=== PATIENT | male | born 1960 | race Caucasian/White ===

== ENCOUNTER 2017-06-11 22:46 | Emergency (ER) | payer OTHER ==
[~2017-06-11] VITALS: Ht 177.8 cm; Wt 88.5 kg
[2017-06-11] MEDS ORDERED: DIOVAN HCT 1601 EAC1 ORAL (23:03)
[2017-06-11 23:40] VITALS: BP 180/107
[2017-06-12] MEDS ORDERED: ZITHROMAX250 MG ORAL (00:07)
[2017-06-12 00:15] VITALS: BP 180/107
[2017-06-12] MEDS ORDERED: Bacitracin Oint UD TOPIC ONE (00:15)
--- NOTE | 2017-06-12 03:53 | Emergency Room Report ---
History of Present Illness General Chief Complaint: Laceration Source: Patient Present Illness HPI Patient is a 57-year-old male who presented after increased left thumb pain. Patient had injury approximately 2 hours prior to arrival. Patient stated he had up-to-date tetanus vaccine. He denies any pulsatile bleeding. He states that he had no numbness distally to the injury. The patient been holding direct pressure. He is right-hand dominant. 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 Allergies: Coded Allergies: PENICILLINS (Verified Allergy, Unknown, 06/11/17) Patient History Past Medical History: see triage record Reviewed Nursing Documentation: PMH: Agreed, PSxH: Agreed Nursing Documentation-PMH Past Medical History: No History, Except For Hx Hypertension: Yes Review of Systems All Other Systems: negative except mentioned in HPI Physical Exam Vital Signs Date Time Temp Pulse Resp B/P (MAP) Pulse Ox O2 Delivery O2 Flow Rate FiO2 06/11/17 22:59 98.2 95 14 180/107 96 Room Air 98.2 General Appearance: well appearing, no apparent distress, alert, GCS 15 Head: normocephalic, atraumatic ENT: hearing grossly normal, normal voice Neck: full range of motion, supple Respiratory: no respiratory distress, speaking full sentences Musculoskeletal: no calf tenderness Neurologic: normal inspection, alert, oriented x3, normal gait Psychiatric: mood/affect normal Skin: no rash, laceration - distal phalanx left thumb pad Procedures Laceration/Wound Repair Laceration/Wound Repair : Wound Location: upper extremity Wound's Depth, Shape: superficial Wound Length (cm): 2 Wound Explored: clean Irrigated w/ Saline (ccs): 30 Betadine Prep?: Yes Anesthesia: 1% Lidocaine Volume Anesthetic (ccs): 2 Wound Debrided: minimal Wound Repaired With: sutures Suture Size/Type: 5:0 Number of Sutures: 5 Sterile Dressing Applied?: Yes Patient Tolerated: Well Complications: None Medical Decision Making Diagnostic Impression: Primary Impression: Laceration ER Course Patient presented for laceration. Differential diagnoses included foreign body , nerve injury, arterial injury among others. Patient has a benign exam and does not appear to require any further imaging or laboratory testing at this time. The patient was irrigated and closed after local anesthetic. The patient tolerated well. There is no noted foreign body. The patient is advised suture removal in 10-14 days and wound check in approximately 3 days. Patient is advised to return if he began having increased discoloration or other concerns Last Vital Signs Date Time Temp Pulse Resp B/P (MAP) Pulse Ox O2 Delivery O2 Flow Rate FiO2 06/11/17 23:40 98.2 95 14 180/107 96 Room Air 98.2 Status: improved Disposition: HOME, SELF-CARE Condition: Stable Scripts Azithromycin* (ZITHROMAX*) 250 Mg Tablet 250 MG ORAL DAILY, #6 TAB 0 Refills Take two tables once daily for 1 day, then one tablet once daily for 4 days. Prov: Elian Julio 06/12/17 Referrals: NOT CHOSEN [facility]/MD,REFERRING (PCP) Departure Forms: Return to Work Return to Work in (Days): 3 Patient Instructions: Laceration Care, Adult Additional Instructions: keep wound clean and dry Elian Julio Jun 12, 2017 03:53
== END 2017-06-12 00:15 | disposition home or self-care (01) ==
LOC: EMR 23:18
DX: S61.012A Laceration without foreign body of left thumb without damage to nail, initial encounter (principal); I10 Essential (primary) hypertension; Z88.0 Allergy status to penicillin; W26.8XXA Contact with other sharp object(s), not elsewhere classified, initial encounter; Y92.009 Unspecified place in unspecified non-institutional (private) residence as the place of occurrence of the external cause
CPT/HCPCS: 99284